=== PATIENT | male | born 1985 | race African-American/Black ===

== ENCOUNTER 2019-05-25 16:07 | Emergency (ER) | payer SELFPAY ==
[~2019-05-25] VITALS: Ht 177.8 cm; Wt 90.0 kg
[2019-05-25 16:45] VITALS: BP 110/62
== END 2019-05-25 17:43 | disposition left against medical advice (07) ==
LOC: ER 17:02
DX: F10.129 Alcohol abuse with intoxication, unspecified (principal); Y90.0 Blood alcohol level of less than 20 mg/100 ml
CPT/HCPCS: 99283